=== PATIENT | female | born 1960 | race American Indian/Alaskan Native ===

== ENCOUNTER 2016-05-03 22:49 | Emergency (ER) | payer OTHER ==
[2016-05-04 00:01] LABS: Basophils % (Auto) 0.7 % (0.0-1.8); Eosinophils % (Auto) 2.2 % (0.0-4.3); Hematocrit 37.8 % (30.3-42.9); Hemoglobin 12.4 gm/dl (10.1-14.3); Mean Corpuscular HGB Conc 33 % (30-34); Mean Corpuscular Hemoglobin 29 pg (28-32); Mean Corpuscular Volume 87 fl (79-97); Platelet Count 248 K/mm3 (140-440); Red Blood Count 4.34 M/mm3 (3.65-5.03); Red Cell Distribution Width 13.9 % (13.2-15.2)
[2016-05-04 00:08] LABS: Anion Gap 20 mmol/L; BUN/Creatinine Ratio 22.85; Blood Urea Nitrogen 16 mg/dL (7-17); Calcium 9.3 mg/dL (8.4-10.2); Carbon Dioxide 27 mmol/L (22-30); Chloride 98.7 mmol/L (98-107); Glucose 144 mg/dL (65-100); Potassium 4.2 mmol/L (3.6-5.0); Sodium 141 mmol/L (137-145)
[2016-05-04 11:45] VITALS: BP 144/56
[2016-05-04] MEDS ORDERED: NEURONTIN PO ONE (11:59)
--- NOTE | 2016-05-04 12:07 | Emergency Department Report ---
HPI - General Chief Complaint: Dizziness Time Seen by Provider: 05/04/16 10:50 - HPI HPI: The patient is a 56-year-old female who presents for evaluation of right arm pain and chest pain. The patient reports 3 days of proximal constant right arm pain, burning in quality, 8/10 in severity, exacerbated with movement of the right arm, and radiating into the right chest. The patient trauma to the right arm or chest, fever, cough, dyspnea, COPD, hemoptysis, unilateral leg swelling, oral contraceptive use, recent immobilization, recent cancer. ED Past Medical Hx - Past Medical History Previous Medical History?: Yes Hx Hypertension: No Hx CVA: Yes Hx Heart Attack/AMI: No Hx Congestive Heart Failure: No Hx Diabetes: Yes Hx Deep Vein Thrombosis: Yes Hx Seizures: No Hx Asthma: No Hx COPD: No Hx Dementia: No Additional medical history: high chol - Surgical History Past Surgical History?: Yes Hx Coronary Stent: No Hx Pacemaker: No Hx Internal Defibrillator: No Additional Surgical History: Teratoma removal, thyroid surgery, hernia repair - Social History Smoking Status: Never Smoker Substance Use Type: Prescribed - Medications Home Medications: Home Medications Medication Instructions Recorded Confirmed Last Taken Type Aspirin [Baby Aspirin] 81 mg PO QDAY 01/04/13 04/12/15 11/25/13 History Lovastatin [Altoprev] 20 mg PO QPM 01/04/13 04/12/15 12/10/13 History metFORMIN [Glucophage] 500 mg PO BID 01/04/13 04/12/15 12/12/13 History glipiZIDE [Glucotrol] 5 mg PO BID 12/12/13 04/12/15 12/11/13 History Acetaminophen/Codeine [Tylenol #3] 1 tab PO Q6H PRN #20 tab 01/09/16 Unknown Rx Gabapentin [Neurontin] 300 mg PO BID #30 cap 05/04/16 Unknown Rx ED Review of Systems ROS: Stated complaint: ARM TINGLING,CP Other details as noted in HPI Constitutional: denies: fever ENT: denies: throat or neck pain Respiratory: denies: cough, shortness of breath Cardiovascular: reports chest pain Endocrine: denies unexplained weight loss or gain Gastrointestinal: denies: abdominal pain, nausea Genitourinary: denies: dysuria Musculoskeletal: reports arm pain denies: leg swelling Skin: denies: rash Neurological: denies: headache Hematological/Lymphatic: denies: easy bleeding or easy bruising Psych: denies sadness or hopelessness Physical Exam - Physical Exam Vital Signs: Vital Signs 05/03/16 05/03/16 05/04/16 23:02 23:04 11:13 Temperature 98.1 F 98.1 F Pulse Rate 80 80 Respiratory 18 18 Rate Blood Pressure 137/69 Blood Pressure 137/69 137/69 [Right] O2 Sat by Pulse 100 100 100 Oximetry 05/04/16 05/04/16 05/04/16 11:20 11:30 11:45 Temperature 98.6 F Pulse Rate 79 Respiratory Rate Blood Pressure 144/56 144/56 Blood Pressure [Right] O2 Sat by Pulse 99 99 Oximetry 05/04/16 11:49 Temperature Pulse Rate Respiratory 16 Rate Blood Pressure Blood Pressure [Right] O2 Sat by Pulse Oximetry Physical Exam: General: well-nourished, well-developed, no acute distress Head: Normocephalic, atraumatic Eyes: normal sclera ENT: Mucous membranes are pink and moist Neck: trachea midline, neck supple, No midline cervical spinous tenderness to palpation present, no spinous step-off or obvious deformity Respiratory: Breath sounds equal bilaterally, no wheezing, rales, or rhonchi Cardio: S1 and S2 present, no murmurs, rubs, gallops, capillary refill is brisk Abdomen: Normoactive bowel sounds, soft abdomen, no rigidity, no guarding or rebound tenderness Musc: Inspection, of the right arm is unremarkable, no redness, swelling, warmth , fluctuance, or crepitus, there is proximal posterior lateral right arm tenderness to palpation present, normal passive and active range of motion intact to the right shoulder and elbow joint, no sensation or motor deficit in the right arm or distally, distal pulses intact, No pitting edema Skin: No rash Neuro: no facial drooping, normal speech Psych: Normal affect ED Course Vital Signs 05/03/16 05/03/16 05/04/16 23:02 23:04 11:13 Temperature 98.1 F 98.1 F Pulse Rate 80 80 Respiratory 18 18 Rate Blood Pressure 137/69 Blood Pressure 137/69 137/69 [Right] O2 Sat by Pulse 100 100 100 Oximetry 05/04/16 05/04/16 05/04/16 11:20 11:30 11:45 Temperature 98.6 F Pulse Rate 79 Respiratory Rate Blood Pressure 144/56 144/56 Blood Pressure [Right] O2 Sat by Pulse 99 99 Oximetry 05/04/16 11:49 Temperature Pulse Rate Respiratory 16 Rate Blood Pressure Blood Pressure [Right] O2 Sat by Pulse Oximetry ED Medical Decision Making - Lab Data Result diagrams: 05/03/16 23:37 05/03/16 23:37 - Medical Decision Making The patient was seen and examined by myself. The patient is placed on a lunchroom monitor and continuous pulse ox. On initial evaluation, the patient was found to be in no distress. EKG was negative for findings suggestive of acute cardiac infarct. Labs and imaging are obtained. The patient is given a tablet of gabapentin for her pain. Lab results were non-concerning including levels of troponin, WBC, hemoglobin, hematocrit, electrolytes, renal function. The patient was reevaluated and reported that their symptoms were markedly improved. As the patient has a KELVIN risk score less than 2, and a well's score less than 2, the patient is at low risk of ACS or pulmonary emboli etiology of their symptoms. The patient is stable for discharge with outpatient follow-up. The patient is given follow-up and return instructions. The patient expressed understanding and agreed with the plan. The patient is discharged in stable condition. Critical care attestation.: If time is entered above; I have spent that time in minutes in the direct care of this critically ill patient, excluding procedure time. ED Disposition Clinical Impression: Pain in right upper arm, Acute chest pain Disposition: DISCHARGED TO HOME OR SELFCARE Is pt being admited?: No Does the pt Need Aspirin: No Condition: Stable Instructions: Chest Pain (ED), Peripheral Neuropathy (ED), Musculoskeletal Pain (ED) Prescriptions: Gabapentin [Neurontin] 300 mg PO BID #30 cap Referrals: PRIMARY CARE, [Primary Care Provider] - 3-5 Days Time of Disposition: 12:11
== END 2016-05-04 12:32 | disposition home or self-care (01) ==
LOC: ED 22:49
DX: M79.601 Pain in right arm (principal); R07.9 Chest pain, unspecified; E11.9 Type 2 diabetes mellitus without complications; E78.00 Pure hypercholesterolemia, unspecified
CPT/HCPCS: 36415; 80048; 84484; 85025; 93005; 93010; 99284

== ENCOUNTER 2016-08-06 07:18 | Emergency (ER) | payer OTHER ==
--- NOTE | 2016-08-06 10:39 | Emergency Department Report ---
ED Extremity Problem HPI - General Chief complaint: Extremity Injury, Lower Stated complaint: LEFT LEG PAIN/NOSE BLEED Time Seen by Provider: 08/06/16 07:57 Source: patient Mode of arrival: Ambulatory Limitations: No Limitations - History of Present Illness Initial comments: Reports history of DVT currently not on any anti-coagulation MD Complaint: extremity pain -: Gradual, week(s) Location: left, lower extremity History of Same: Yes -: No myalgia, No arthralgia, No fever, No associated dyspnea, No associated chest pain Radiation: none Severity scale (0 -10): 2 Quality: aching Consistency: intermittent Improves with: nothing Worsens with: nothing Associated Symptoms: denies: chest pain, shortness of breath, fever, myalgias, arthralgias, rash - Related Data Home Medications Medication Instructions Recorded Confirmed Last Taken Aspirin [Baby Aspirin] 81 mg PO QDAY 01/04/13 05/04/16 11/25/13 Lovastatin [Altoprev] 20 mg PO QPM 01/04/13 05/04/16 12/10/13 metFORMIN [Glucophage] 500 mg PO BID 01/04/13 05/04/16 12/12/13 glipiZIDE [Glucotrol] 5 mg PO BID 12/12/13 05/04/16 12/11/13 Previous Rx's Medication Instructions Recorded Last Taken Type Acetaminophen/Codeine [Tylenol #3] 1 tab PO Q6H PRN #20 tab 01/09/16 Unknown Rx Gabapentin [Neurontin] 300 mg PO BID #30 cap 05/04/16 Unknown Rx methOCARBAMOL [Robaxin TAB] 500 mg PO BID #12 tab 08/06/16 Unknown Rx Allergies Allergy/AdvReac Type Severity Reaction Status Date / Time No Known Allergies Allergy Unverified 01/04/13 18:05 ED Review of Systems ROS: Stated complaint: LEFT LEG PAIN/NOSE BLEED Other details as noted in HPI Other: GENERAL: No weight change, fatigue, weakness, fever, chills, or night sweats SKIN: No changes in skin or hair, no itching, no rashes, no jaundice HEAD: No trauma, headache, or visual changes EYES: No blurriness, tearing, itching, acute visual loss, conjunctival discoloration, or scleral icterus EARS: No hearing loss, tinnitus, vertigo, or earache NOSE: epistaxis MOUTH: No bleeding gums, hoarseness, sore throat, or swelling CARDIAC: No new murmur, chest pain, palpitations, dyspnea on exertion, orthopnea , PND, or edema RESPIRATORY: No shortness of breath, wheeze, cough, sputum production, hemoptysis, pneumonia, asthma, bronchitis, or emphysema GI: No change in appetite, nausea, vomiting, dysphagia, change in bowel frequency, diarrhea, constipation, bleeding, hematemesis, melena, hematochezia, or abdominal pain URINARY: No frequency, urgency, polyuria, dysuria, hematuria, or incontinence MUSCULOSKELETAL: Left leg pain NEUROLOGIC: No loss of sensation, numbness, tingling, tremors, weakness, paralysis, seizures HEMATOLOGIC: No anemia, easy bruising, bleeding, petechiae, or purpura ENDOCRINE: No hot or cold intolerance, sweating, polyuria, polydipsia or, polyphagia no thyroid problems PSYCHIATRIC: No change in mood, no anxiety, no depression ED Past Medical Hx - Past Medical History Hx Hypertension: No Hx CVA: Yes Hx Heart Attack/AMI: No Hx Congestive Heart Failure: No Hx Diabetes: Yes Hx Deep Vein Thrombosis: Yes Hx Seizures: No Hx Asthma: No Hx COPD: No Hx Dementia: No Additional medical history: high chol - Surgical History Past Surgical History?: Yes Hx Coronary Stent: No Hx Pacemaker: No Hx Internal Defibrillator: No Additional Surgical History: Teratoma removal, thyroid surgery, hernia repair - Social History Smoking Status: Never Smoker Substance Use Type: None - Medications Home Medications: Home Medications Medication Instructions Recorded Confirmed Last Taken Type Aspirin [Baby Aspirin] 81 mg PO QDAY 01/04/13 05/04/16 11/25/13 History Lovastatin [Altoprev] 20 mg PO QPM 01/04/13 05/04/16 12/10/13 History metFORMIN [Glucophage] 500 mg PO BID 01/04/13 05/04/16 12/12/13 History glipiZIDE [Glucotrol] 5 mg PO BID 12/12/13 05/04/16 12/11/13 History Acetaminophen/Codeine [Tylenol #3] 1 tab PO Q6H PRN #20 tab 01/09/16 05/04/16 Unknown Rx Gabapentin [Neurontin] 300 mg PO BID #30 cap 05/04/16 Unknown Rx methOCARBAMOL [Robaxin TAB] 500 mg PO BID #12 tab 08/06/16 Unknown Rx ED Physical Exam - General Limitations: No Limitations - Other Other exam information: GENERAL: Patient in no acute distress HEAD: Normocephalic, atraumatic EYES: PERRLA, EOM intact, no scleral icterus, no conjunctival hemorrhage, visual silveira and acuity wnl, NOSE: No tenderness, discharge, sinus tenderness MOUTH: No erythema, bleeding, exudate HEART: Regular rate and rhythm, no murmur, S1-S2 are auscultated, pulses are symmetric LUNGS: No wheezing, rales, rhonchi, bilateral breath sounds ABDOMEN: Normal bowel sounds, no tenderness, no rebound, no guarding, no masses , no CVA tenderness MUSCULOSKELETAL: Normal joint range of motion, no redness, no swelling, no tenderness NEUROLOGIC: GCS 15, Alert and Oriented x3, Cranial nerves intact, normal sensation, normal strength, normal gait, no cerebellar deficit PSYCHIATRIC: No homicidal or suicidal ideation, no anxiety, no depression, no hallucinations SKIN: Skin is warm and dry, no wounds, no rashes ED Course Vital Signs 08/06/16 08/06/16 08/06/16 07:24 07:48 11:17 Temperature 98 F 98.6 F Pulse Rate 76 86 Respiratory 16 16 18 Rate Blood Pressure 118/79 Blood Pressure 142/80 [Right] O2 Sat by Pulse 100 99 96 Oximetry ED Medical Decision Making - Radiology Data Radiology results: report reviewed - Medical Decision Making Patient comfortable. Updated with results. Plan discharge with outpatient follow-up. Patient agrees with plan and will return if symptoms worsen. Critical care attestation.: If time is entered above; I have spent that time in minutes in the direct care of this critically ill patient, excluding procedure time. ED Disposition Clinical Impression: Muscle strain Disposition: DC-01 TO HOME OR SELFCARE Is pt being admited?: No Condition: Stable Instructions: Muscle Strain (ED) Prescriptions: methOCARBAMOL [Robaxin TAB] 500 mg PO BID #12 tab Referrals: PRIMARY CARE, [Primary Care Provider] - 3-5 Days THERESA OSORIO MD [Staff Physician] - 3-5 Days Time of Disposition: 10:37
[2016-08-06 11:18] VITALS: BP 142/80
--- NOTE | 2016-08-07 09:22 | Vascular Lab Report ---
Left Lower Extremity Venous Duplex Study: Reason for Exam: Pain of the left lower extremity. Comments on the Right: A limited duplex study was done of the proximal veins of the right lower extremity. All veins visualized are freely compressible without evidence of internal echogenicity. Flow is spontaneous and phasic throughout. No evidence of acute or chronic thrombus is seen in any of the vessels visualized. Comments on the Left: All veins visualized are freely compressible without evidence of internal echogenicity. Flow is spontaneous and phasic throughout. No evidence of acute or chronic thrombus is seen in any of the vessels visualized. Soft tissue radiolucent density behind the left knee is consistent with August's cyst Impression: No evidence of acute or chronic deep venous thrombosis in the left lower extremity.
== END 2016-08-06 11:16 | disposition home or self-care (01) ==
LOC: ED 07:18
DX: S86.812A Strain of other muscle(s) and tendon(s) at lower leg level, left leg, initial encounter (principal); E11.9 Type 2 diabetes mellitus without complications; I82.4Z2 Acute embolism and thrombosis of unspecified deep veins of left distal lower extremity; E78.00 Pure hypercholesterolemia, unspecified; Z79.82 Long term (current) use of aspirin; X58.XXXA Exposure to other specified factors, initial encounter; Y93.89 Activity, other specified; Y92.89 Other specified places as the place of occurrence of the external cause; Y99.8 Other external cause status; Z86.73 Personal history of transient ischemic attack (TIA), and cerebral infarction without residual deficits

== ENCOUNTER 2017-04-08 22:04 | Emergency (ER) | payer OTHER ==
[2017-04-09] LABS: Basophils % (Auto) 0.2 % (0.0-1.8); Eosinophils # (Auto) 0.2 K/mm3 (0.0-0.4); Eosinophils % (Auto) 1.5 % (0.0-4.3); Hematocrit 39.7 % (30.3-42.9); Lymphocytes # (Auto) 2.4 K/mm3 (1.2-5.4); Lymphocytes % (Auto) 23.7 % (13.4-35.0); Mean Corpuscular HGB Conc 33 % (30-34); Mean Corpuscular Hemoglobin 29 pg (28-32); Mean Corpuscular Volume 88 fl (79-97); Monocytes # (Auto) 0.5 K/mm3 (0.0-0.8); Monocytes % (Auto) 4.4 % (0.0-7.3); Platelet Count 269 K/mm3 (140-440); Red Cell Distribution Width 14.1 % (13.2-15.2)
[2017-04-09 00:19] LABS: BUN/Creatinine Ratio 25; Blood Urea Nitrogen 15 mg/dL (7-17); Hemolysis Index 7
[2017-04-09] MEDS ORDERED: ASPIRIN ONE (12:26)
[2017-04-09] MEDS: ASPIRIN PO ONE ×2 (12:30→13:56)
--- NOTE | 2017-04-09 15:30 | Emergency Department Report ---
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 Last night after she ate some nachos and laid back she has some burning in her chest. She presented to triage complaining of burning chest pain that is now resolved with Pepto-Bismol No. 1. #2 persistent leg swelling on the right leg after she felt a pop yesterday while at jury duty. She denies any shortness of breath she denies any tearing pain she denies any radiation of the pain she denies any exertional symptoms.no Chest pain is resolved from yesterday after Pepto-Bismol after eating not shows while laying flat.no n/v/d no cough or fever.vss at triage -: Gradual, During the night, unknown Location: lower extremity Radiation: non-radiation Severity scale (0 -10): 0 Quality: burning Improves with: other (Pepto-Bismol) Worsens with: eating - Related Data Home Medications Medication Instructions Recorded Confirmed Last Taken Aspirin [Baby Aspirin] 81 mg PO QDAY 01/04/13 05/04/16 11/25/13 Lovastatin [Altoprev] 20 mg PO QPM 01/04/13 05/04/16 12/10/13 metFORMIN [Glucophage] 500 mg PO BID 01/04/13 05/04/16 12/12/13 glipiZIDE [Glucotrol] 5 mg PO BID 12/12/13 05/04/16 12/11/13 Previous Rx's Medication Instructions Recorded Last Taken Type Acetaminophen/Codeine [Tylenol #3] 1 tab PO Q6H PRN #20 tab 01/09/16 Unknown Rx Gabapentin [Neurontin] 300 mg PO BID #30 cap 05/04/16 Unknown Rx methOCARBAMOL [Robaxin TAB] 500 mg PO BID #12 tab 08/06/16 Unknown Rx Famotidine [Pepcid] 20 mg PO BID #14 tablet 04/09/17 Unknown Rx Allergies Allergy/AdvReac Type Severity Reaction Status Date / Time No Known Allergies Allergy Verified 04/08/17 23:16 ED Review of Systems ROS: Stated complaint: RIGHT LEG PAIN/CHEST PAIN Other details as noted in HPI Comment: All other systems reviewed and negative Constitutional: no symptoms reported. denies: diaphoresis, fever, malaise, weakness ENT: denies: ear pain, throat pain, dental pain, hearing loss, epistaxis Respiratory: denies: cough, orthopnea, shortness of breath, SOB with exertion, SOB at rest, stridor, wheezing Cardiovascular: as per HPI. denies: palpitations, dyspnea on exertion, orthopnea, edema, syncope, paroxysmal nocturnal dyspnea Endocrine: no symptoms reported Gastrointestinal: other (GERD). denies: abdominal pain, nausea, vomiting, diarrhea, constipation, hematemesis, melena, hematochezia Musculoskeletal: as per HPI, myalgia. denies: arthralgia Skin: denies: rash, lesions Neurological: denies: headache, weakness, numbness, paresthesias, confusion, abnormal gait, vertigo Psychiatric: anxiety. denies: depression, auditory hallucinations, visual hallucinations, homicidal thoughts, suicidal thoughts ED Past Medical Hx - Past Medical History Previous Medical History?: Yes Hx Hypertension: No Hx CVA: Yes Hx Heart Attack/AMI: No Hx Congestive Heart Failure: No Hx Diabetes: Yes Hx Deep Vein Thrombosis: Yes Hx Seizures: No Hx Asthma: No Hx COPD: No Hx Dementia: No Additional medical history: high chol - Surgical History Hx Coronary Stent: No Hx Pacemaker: No Hx Internal Defibrillator: No Additional Surgical History: Teratoma removal, thyroid surgery, hernia repair - Social History Smoking Status: Never Smoker Substance Use Type: None - Medications Home Medications: Home Medications Medication Instructions Recorded Confirmed Last Taken Type Aspirin [Baby Aspirin] 81 mg PO QDAY 01/04/13 05/04/16 11/25/13 History Lovastatin [Altoprev] 20 mg PO QPM 01/04/13 05/04/16 12/10/13 History metFORMIN [Glucophage] 500 mg PO BID 01/04/13 05/04/16 12/12/13 History glipiZIDE [Glucotrol] 5 mg PO BID 12/12/13 05/04/16 12/11/13 History Acetaminophen/Codeine [Tylenol #3] 1 tab PO Q6H PRN #20 tab 01/09/16 05/04/16 Unknown Rx Gabapentin [Neurontin] 300 mg PO BID #30 cap 05/04/16 Unknown Rx methOCARBAMOL [Robaxin TAB] 500 mg PO BID #12 tab 08/06/16 Unknown Rx Famotidine [Pepcid] 20 mg PO BID #14 tablet 04/09/17 Unknown Rx ED Physical Exam - General Limitations: No Limitations General appearance: alert, in no apparent distress, anxious - Head Head exam: Present: atraumatic, normocephalic - Eye Eye exam: Present: normal appearance, PERRL, EOMI - ENT ENT exam: Present: normal exam, normal orophraynx - Neck Neck exam: Present: normal inspection. Absent: tenderness, meningismus - Respiratory Respiratory exam: Present: normal lung sounds bilaterally. Absent: respiratory distress, wheezes, rales, rhonchi, stridor, chest wall tenderness, accessory muscle use, decreased breath sounds, prolonged expiratory - Cardiovascular Cardiovascular Exam: Present: regular rate, normal rhythm, normal heart sounds. Absent: systolic murmur, diastolic murmur, rubs, gallop - GI/Abdominal GI/Abdominal exam: Present: soft. Absent: distended, tenderness, guarding, rebound, rigid, mass, bruit, pulsatile mass - Extremities Exam Extremities exam: Present: normal capillary refill, pedal edema, calf tenderness. Absent: joint swelling - Back Exam Back exam: Present: normal inspection, full ROM. Absent: tenderness, CVA tenderness (R), CVA tenderness (L), muscle spasm, paraspinal tenderness, vertebral tenderness - Neurological Exam Neurological exam: Present: alert, oriented X3, CN II-XII intact. Absent: motor sensory deficit - Psychiatric Psychiatric exam: Present: normal affect, normal mood - Skin Skin exam: Present: warm. Absent: diaphoretic, erythema, urticaria, vesicles, petechiae, pallor, abrasion, ecchymosis ED Course Vital Signs 04/08/17 04/09/17 04/09/17 22:20 12:23 14:14 Temperature 98.2 F 97.6 F 98.0 F Pulse Rate 101 H 68 68 Respiratory 17 18 14 Rate Blood Pressure 146/52 Blood Pressure 135/64 113/54 [Left] O2 Sat by Pulse 99 100 100 Oximetry 04/09/17 04/09/17 14:36 17:02 Temperature 98.2 F Pulse Rate 67 Respiratory 14 14 Rate Blood Pressure Blood Pressure 108/50 [Left] O2 Sat by Pulse 100 Oximetry ED Medical Decision Making - Lab Data Result diagrams: 04/08/17 23:37 04/08/17 23:37 - EKG Data -: EKG Interpreted by Me EKG shows normal: sinus rhythm - EKG Data When compared to previous EKG there are: no significant change, other (acute ischemic change) - Radiology Data Radiology results: report reviewed - Medical Decision Making Patient with 2 complaints chest pain and right lower extremity edema and pop. Chest x-ray shows within normal limits. Ultrasound of the right lower extremity was read as negative on the pre-limb by the tech. The final result is not out. Differential does include ruptured August's cyst versus by mouth edema. Differential and chest pain is atypical. She has no tearing pain she has no shortness of breath she has no signs or symptoms of would suggest dissection or ACS at this time. Symptoms resolved with antacids. She says it did get worse after lying flat and she thought it was related to eating nodules. Troponin is negative 3. EKG is non-diagnostic at this time. Atypical chest pain differential does include GERD as well as nonspecific chest pain. As previously noted is no evidence of any emergent chest pain syndrome that would warrant admission or further evaluation at this time. ACS is unlikely given negative troponin 3 and unremarkable EKG history is atypical for ACS. Chest pain is resolved at this time. She'll be started on H2 blockers. The leg edema does not appear to be a DVT at this time. Differential is ruptured August's cyst and edema she will be instructed to elevate her legs and see orthopedics S or other emergent process is appreciated at this time she is stable for outpatient follow-up she is currently in no acute distress with stable vital signs Critical care attestation.: If time is entered above; I have spent that time in minutes in the direct care of this critically ill patient, excluding procedure time. ED Disposition Clinical Impression: Chest pain, atypical, GERD (gastroesophageal reflux disease), Leg edema Disposition: DC-01 TO HOME OR SELFCARE Is pt being admited?: No Condition: Stable Instructions: Chest Pain (ED), Leg Edema (ED), August's Cyst (ED) Additional Instructions: See her doctor in 2 days return if worse or 911 if or worsening symptoms Prescriptions: Famotidine [Pepcid] 20 mg PO BID #14 tablet Referrals: MOON GALEANO MD [Primary Care Provider] - 3-5 Days Time of Disposition: 18:44
--- NOTE | 2017-04-09 15:54 | XRay Report ---
ROUTINE CHEST, TWO VIEWS: HISTORY: Wheezing. The trachea, heart, mediastinal contour, lung silveira and bony thorax are unremarkable. IMPRESSION: Unremarkable chest x-ray.
[2017-04-09 19:04] VITALS: BP 143/70
== END 2017-04-09 19:06 | disposition home or self-care (01) ==
LOC: ED 22:04
DX: K21.9 Gastro-esophageal reflux disease without esophagitis (principal); R07.89 Other chest pain; R60.0 Localized edema; Z86.73 Personal history of transient ischemic attack (TIA), and cerebral infarction without residual deficits; E11.9 Type 2 diabetes mellitus without complications; I82.409 Acute embolism and thrombosis of unspecified deep veins of unspecified lower extremity; E78.00 Pure hypercholesterolemia, unspecified; Z79.82 Long term (current) use of aspirin
CPT/HCPCS: 36415; 71046; 80048; 82962; 84484; 85025; 93005; 93010

== ENCOUNTER 2017-08-21 16:16 | Outpatient (CLI) | payer OTHER ==
--- NOTE | 2017-08-22 07:37 | Magnetic Resonance Report ---
MR LOWER EXTREMITY JOINT RIGHT WITHOUT CONTRAST History: Pain in right knee. Technique: Multisequence, multiplanar MRI without contrast was performed through the right knee. Comparison: No relevant comparison at this facility. FINDINGS: A moderate joint effusion is identified which extends to the suprapatellar bursa. There is a large popliteal cyst measuring up to 7.7 x 3.3 x 2.5 cm. The bone marrow signal is within normal limits. No evidence for fracture, osteochondral defect or bone lesion. There appears to be complete or near-complete loss of cartilage in the lateral compartment as well as the lateral facet of the retropatellar cartilage. Moderate diffuse cartilage thinning is noted in the medial compartment. The ACL, PCL, MCL, LCL complex and extensor complex are intact. There is moderate myxoid degeneration of both menisci but no discrete meniscal tear is detected. IMPRESSION: Moderate to severe osteoarthritis as described. Moderate joint effusion. Large popliteal cyst.
== END 2017-08-21 16:17 | disposition home or self-care (01) ==
LOC: MRI 16:16
PROVIDERS: ATTEND Orthopaedic Surgery
DX: M17.11 Unilateral primary osteoarthritis, right knee (principal); M71.21 Synovial cyst of popliteal space [Baker], right knee; E66.9 Obesity, unspecified; E78.5 Hyperlipidemia, unspecified; Z90.710 Acquired absence of both cervix and uterus
CPT/HCPCS: 73721

== ENCOUNTER 2017-10-02 10:45 | Outpatient (CLI) | payer OTHER ==
--- NOTE | 2017-10-02 11:36 | XRay Report ---
RIGHT KNEE, 2 views: History: Right knee unilateral primary osteoarthritis Normal bone mineralization. Moderate osteoarthritic changes are identified in all 3 compartments. The patellofemoral space appears most affected. There is no evidence for fracture, bone lesion or large joint effusion. The soft tissues are unremarkable. IMPRESSION: Moderate tricompartmental osteoarthritis.
== END 2017-10-02 10:46 | disposition home or self-care (01) ==
LOC: XRAY 10:45
PROVIDERS: ATTEND Orthopaedic Surgery
DX: M17.11 Unilateral primary osteoarthritis, right knee (principal); E78.5 Hyperlipidemia, unspecified; E66.9 Obesity, unspecified; M19.90 Unspecified osteoarthritis, unspecified site; E11.9 Type 2 diabetes mellitus without complications; K21.9 Gastro-esophageal reflux disease without esophagitis; E78.00 Pure hypercholesterolemia, unspecified; I63.9 Cerebral infarction, unspecified; Z90.710 Acquired absence of both cervix and uterus; Z90.89 Acquired absence of other organs

== ENCOUNTER 2017-11-11 19:40 | Emergency (ER) | payer OTHER ==
[2017-11-11 21:35] LABS: Bilirubin,Urine NEG (Negative); Blood,Urine NEG (Negative); Color,Urine Colorless (Yellow); Protein,Urine <15 mg/dL mg/dL (Negative); RBC,Urine < 1.0 /HPF (0.0-6.0); Urobilinogen,Urine < 2.0 mg/dL (<2.0)
--- NOTE | 2017-11-11 23:41 | Emergency Department Report ---
ED Female HPI - General Chief complaint: Urogenital-Female Stated complaint: PAIN WHEN URINATING Time Seen by Provider: 11/11/17 23:35 Source: patient Mode of arrival: Wheelchair Limitations: No Limitations - History of Present Illness Initial comments: Patient 57-year-old female who presents for yeast infection stay status post right knee replacement on 10/03/2017 developed a UTI and patient treated for same diagnosis [place] on discharge treated with Diflucan one tablet 1 states systems return erythema itching urinary frequency urgency staining foul smell with urination there is no hematuria patient does note back spasms history of renal stones and fever no chills no nausea vomiting MD Complaint: dysuria, other (rash ) Onset/Timin -: week(s) Radiation: non-radiating Severity: mild Severity scale (0 -10): 3 Quality: burning, other (itching ) Consistency: constant Improves with: none Worsens with: urination, bathing Are you Now?: No Associated Symptoms: rash - Related Data Sexually active: No Home Medications Medication Instructions Recorded Confirmed Last Taken Lovastatin [Altoprev] 20 mg PO QPM 01/04/13 09/20/17 10/02/17 metFORMIN [Glucophage] 1,000 mg PO BID 01/04/13 09/20/17 10/02/17 glipiZIDE [Glucotrol] 10 mg PO BID 12/12/13 09/20/17 10/02/17 Brimonidine Tartrate [Brimonidine 1 drop OU BID 09/20/17 09/20/17 10/02/17 Tartrate 0.2%] Famotidine [Pepcid] 20 mg PO PRN PRN 09/20/17 09/20/17 10/02/17 Latanoprost 0.005% [Xalatan 0.005%] 1 drop OP QPM 09/20/17 09/20/17 10/02/17 Previous Rx's Medication Instructions Recorded Last Taken Type Apixaban [Eliquis] 2.5 mg PO BID #42 tablet 10/06/17 Unknown Rx Oxycodone HCl [oxyCODONE TAB] 10 mg PO Q6H PRN #30 tablet 10/06/17 Unknown Rx Fluconazole [Diflucan] 150 mg PO Q72HR #2 tablet 11/11/17 Unknown Rx Nitrofurantoin [place]/M-Cryst 100 mg PO Q12HR #14 capsule 11/11/17 Unknown Rx [Macrobid CAP] Allergies Allergy/AdvReac Type Severity Reaction Status Date / Time No Known Allergies Allergy Verified 04/08/17 23:16 ED Review of Systems ROS: Stated complaint: PAIN WHEN URINATING Other details as noted in HPI Constitutional: denies: chills, fever Eyes: denies: eye pain, eye discharge, vision change ENT: denies: ear pain, throat pain Respiratory: denies: cough, shortness of breath, wheezing Cardiovascular: denies: chest pain, palpitations Endocrine: no symptoms reported Gastrointestinal: denies: abdominal pain, nausea, diarrhea Genitourinary: urgency, dysuria, frequency. denies: hematuria, discharge, abnormal menses, dyspareunia Musculoskeletal: back pain. denies: joint swelling, arthralgia Skin: denies: rash, lesions Neurological: denies: headache, weakness, paresthesias Psychiatric: denies: anxiety, depression Hematological/Lymphatic: denies: easy bleeding, easy bruising ED Past Medical Hx - Past Medical History Hx Hypertension: No Hx CVA: Yes Hx Heart Attack/AMI: No Hx Congestive Heart Failure: No Hx Diabetes: Yes Hx Deep Vein Thrombosis: Yes Hx GERD: Yes Hx Headaches / Migraines: Yes (MIGRAINES) Hx Seizures: No Hx Asthma: No Hx COPD: No Hx Dementia: No Hx HIV: No Additional medical history: high chol - Surgical History Hx Coronary Stent: No Hx Pacemaker: No Hx Internal Defibrillator: No Additional Surgical History: Teratoma removal, thyroid surgery, hernia repair, right total knee - Social History Smoking Status: Never Smoker Substance Use Type: None - Medications Home Medications: Home Medications Medication Instructions Recorded Confirmed Last Taken Type Lovastatin [Altoprev] 20 mg PO QPM 01/04/13 09/20/17 10/02/17 History metFORMIN [Glucophage] 1,000 mg PO BID 01/04/13 09/20/17 10/02/17 History glipiZIDE [Glucotrol] 10 mg PO BID 12/12/13 09/20/17 10/02/17 History Brimonidine Tartrate [Brimonidine 1 drop OU BID 09/20/17 09/20/17 10/02/17 History Tartrate 0.2%] Famotidine [Pepcid] 20 mg PO PRN PRN 09/20/17 09/20/17 10/02/17 History Latanoprost 0.005% [Xalatan 0.005%] 1 drop OP QPM 09/20/17 09/20/17 10/02/17 History Apixaban [Eliquis] 2.5 mg PO BID #42 tablet 10/06/17 Unknown Rx Oxycodone HCl [oxyCODONE TAB] 10 mg PO Q6H PRN #30 tablet 10/06/17 Unknown Rx Fluconazole [Diflucan] 150 mg PO Q72HR #2 tablet 11/11/17 Unknown Rx Nitrofurantoin [place]/M-Cryst 100 mg PO Q12HR #14 capsule 11/11/17 Unknown Rx [Macrobid CAP] ED Physical Exam - General Limitations: No Limitations General appearance: alert, in no apparent distress - Head Head exam: Present: atraumatic, normocephalic - Eye Eye exam: Present: normal appearance - ENT ENT exam: Present: mucous membranes moist - Neck Neck exam: Present: normal inspection - Respiratory Respiratory exam: Present: normal lung sounds bilaterally. Absent: respiratory distress - Cardiovascular Cardiovascular Exam: Present: regular rate, normal rhythm. Absent: systolic murmur, diastolic murmur, rubs, gallop - GI/Abdominal GI/Abdominal exam: Present: soft, normal bowel sounds. Absent: distended, tenderness, bruit, hernia - Rectal Rectal exam: Present: deferred - Extremities Exam Extremities exam: Present: normal inspection - Back Exam Back exam: Present: normal inspection. Absent: full ROM, tenderness, CVA tenderness (R), CVA tenderness (L), muscle spasm, paraspinal tenderness, vertebral tenderness ED Course Vital Signs 11/11/17 20:00 Temperature 98.7 F Pulse Rate 90 Respiratory 18 Rate Blood Pressure 122/67 O2 Sat by Pulse 98 Oximetry ED Medical Decision Making - Lab Data Laboratory Tests 11/11/17 20:47 Urine Color Colorless Urine Turbidity Clear Urine pH 6.0 Ur Specific [place] 1.003 Urine Protein <15 mg/dl Urine Glucose (UA) Neg Urine Ketones Neg Urine Blood Neg Urine Nitrite Neg Urine Bilirubin Neg Urine Urobilinogen < 2.0 Ur Leukocyte Esterase Neg Urine WBC (Auto) 1.0 Urine RBC (Auto) < 1.0 U Epithel Cells (Auto) 1.0 - Medical Decision Making UA normal plan treatment for dysuria candidal vaginitis Macrobid Diflucan patient will follow up with PCP in 2-[address] Amezcua patient verbalizes agreement and understanding and signed patient was DC'd home stable condition at this time Critical care attestation.: If time is entered above; I have spent that time in minutes in the direct care of this critically ill patient, excluding procedure time. ED Disposition Clinical Impression: Candidal vaginitis, Dysuria Disposition: DC-01 TO HOME OR SELFCARE Is pt being admited?: No Does the pt Need Aspirin: No Condition: Good Instructions: Vaginitis (ED) Prescriptions: Nitrofurantoin [place]/M-Cryst [Macrobid CAP] 100 mg PO Q12HR #14 capsule Fluconazole [Diflucan] 150 mg PO Q72HR #2 tablet Referrals: PRIMARY CARE, [Primary Care Provider] - 3-5 Days Forms: Work/School Release Form(ED) Time of Disposition: 23:52
[2017-11-11] MEDS ORDERED: MOTRIN PO ONE (23:53)
[2017-11-12 00:54] VITALS: BP 129/77
== END 2017-11-12 00:54 | disposition home or self-care (01) ==
LOC: ED 19:40
DX: B37.3 Candidiasis of vulva and vagina (principal); R30.0 Dysuria; E11.9 Type 2 diabetes mellitus without complications; K21.9 Gastro-esophageal reflux disease without esophagitis; G43.909 Migraine, unspecified, not intractable, without status migrainosus; Z86.73 Personal history of transient ischemic attack (TIA), and cerebral infarction without residual deficits; Z86.718 Personal history of other venous thrombosis and embolism
CPT/HCPCS: 81001; 82962; 99283

== ENCOUNTER 2021-01-11 08:41 | Emergency (ER) | payer OTHER ==
--- NOTE | 2021-01-11 11:17 | XRay Report ---
CHEST 2 VIEWS INDICATION / CLINICAL INFORMATION: Chest Pain. COMPARISON: 2 views of the chest from 04/09/2017 FINDINGS: SUPPORT DEVICES: None. HEART / MEDIASTINUM: No significant abnormality. LUNGS / PLEURA: No significant pulmonary abnormality. No significant pleural effusion. No pneumothora x. ADDITIONAL FINDINGS: No significant additional findings. IMPRESSION: 1. No acute abnormality of the chest. Signer Name: Mathew Day MD Signed: 01/11/2021 11:13 AM Workstation Name: [id number]
[2021-01-11 11:53] LABS: Alanine Aminotransferase 12 units/L (7-56); Albumin 4.5 g/dL (3.9-5); Blood Urea Nitrogen 15 mg/dL (7-17); Calcium 9.8 mg/dL (8.4-10.2); Hemolysis Index 3
[2021-01-11 11:57] LABS: BUN/Creatinine Ratio 30
--- NOTE | 2021-01-11 11:57 | Event Note ---
ED Screening Note Date of service: 01/11/21 Time: 10:20 ED Screening Note: Two 1-year-old -Indian female presents to the emergency room complaining of left arm pain that is now into her left chest started on Saturday progressively gotten worse. She is now having chest discomfort. She has a history of pulmonary embolisms DVTs. She states she has had multiple TIAs. She has been complaining of dizziness unsteady gait. This initial assessment/diagnostic orders/clinical plan/treatment(s) is/are subject to change based on patients health status, clinical progression and re- assessment by fellow clinical providers in the ED. Further treatment and workup at subsequent clinical providers discretion. Patient/guardian urged not to elope from the ED as their condition may be serious if not clinically assessed and managed. Initial orders include: Cardiac work-up has been ordered D-dimer.
[2021-01-11 12:05] LABS: Basophils % (Auto) 0.8 % (0.0-1.8); Eosinophils # (Auto) 0.1 K/mm3 (0.0-0.4); Eosinophils % (Auto) 1.9 % (0.0-4.3); Hematocrit 45.1 % (30.3-42.9); Hemoglobin 14.4 gm/dl (10.1-14.3); Lymphocytes # (Auto) 1.9 K/mm3 (1.2-5.4); Lymphocytes % (Auto) 32.6 % (13.4-35.0); Mean Corpuscular HGB Conc 32 % (30-34); Mean Corpuscular Volume 90 fl (79-97); Monocytes # (Auto) 0.3 K/mm3 (0.0-0.8); Monocytes % (Auto) 5.9 % (0.0-7.3); Platelet Count 252 K/mm3 (140-440); Red Blood Count 5.02 M/mm3 (3.65-5.03); Red Cell Distribution Width 14.8 % (13.2-15.2)
--- NOTE | 2021-01-11 12:23 | Emergency Department Report ---
ED Upper Extremity Inj HPI - General Chief Complaint: Extremity Injury, Upper Stated Complaint: L ARM PAIN Time Seen by Provider: 01/11/21 10:07 Source: patient Mode of arrival: Ambulatory Limitations: No Limitations - History of Present Illness Initial Comments: 60-year-old female, history of DVT, PE, TIA, presents to ED with complaint of left shoulder pain x1 week. Patient states pain is worse with movement of the left arm. States the pain feels like a soreness or aching. Patient also reports she has been having some intermittent lightheadedness, only when standing. Patient reports last night, she experienced numbness pain underneath her left breast. States it was sharp in nature. She denies any shortness of breath, leg pain or swelling, cough, fever. Patient denies any chest pain at this time. Patient states she is no longer on any blood thinners at this time. Complaint: Injury to:: left, shoulder -: week(s) (1) Improves With: immobilization Worsens With: movement of extremity Associated Symptoms: denies: weakness, numbness, neck pain - Related Data Home Medications Medication Instructions Recorded Confirmed Last Taken Lovastatin [Altoprev] 20 mg PO QPM 01/04/13 01/11/21 10/02/17 glipiZIDE [Glucotrol] 10 mg PO BID 12/12/13 01/11/21 10/02/17 Brimonidine Tartrate [Brimonidine 1 drop OU BID 09/20/17 01/11/21 10/02/17 Tartrate 0.2%] Latanoprost 0.005% [Xalatan 0.005%] 1 drop OP QPM 09/20/17 01/11/21 10/02/17 Previous Rx's Medication Instructions Recorded Last Taken Type Naproxen [Naprosyn] 500 mg PO BID #20 tablet 01/11/21 Unknown Rx traMADoL [Ultram] 50 mg PO Q6HR PRN #7 tablet 01/11/21 Unknown Rx Allergies Allergy/AdvReac Type Severity Reaction Status Date / Time No Known Allergies Allergy Verified 01/11/21 08:46 ED Review of Systems ROS: Stated complaint: L ARM PAIN Other details as noted in HPI Constitutional: denies: chills, fever Respiratory: denies: cough, shortness of breath Cardiovascular: chest pain Gastrointestinal: denies: nausea, vomiting Musculoskeletal: other (Denies leg pain or swelling) Neurological: other (Patient reports dizziness) ED Past Medical Hx - Past Medical History Hx Hypertension: No Hx CVA: Yes Hx Heart Attack/AMI: No Hx Congestive Heart Failure: No Hx Diabetes: Yes Hx Deep Vein Thrombosis: Yes Hx GERD: Yes Hx Headaches / Migraines: Yes (MIGRAINES) Hx Seizures: No Hx Asthma: No Hx COPD: No Hx Dementia: No Hx HIV: No Additional medical history: high chol - Surgical History Hx Coronary Stent: No Hx Pacemaker: No Hx Internal Defibrillator: No Additional Surgical History: Teratoma removal, thyroid surgery, hernia repair, right total knee - Social History Smoking Status: Never Smoker Substance Use Type: None - Medications Home Medications: Home Medications Medication Instructions Recorded Confirmed Last Taken Type Lovastatin [Altoprev] 20 mg PO QPM 01/04/13 01/11/21 10/02/17 History glipiZIDE [Glucotrol] 10 mg PO BID 12/12/13 01/11/21 10/02/17 History Brimonidine Tartrate [Brimonidine 1 drop OU BID 09/20/17 01/11/21 10/02/17 History Tartrate 0.2%] Latanoprost 0.005% [Xalatan 0.005%] 1 drop OP QPM 09/20/17 01/11/21 10/02/17 History Naproxen [Naprosyn] 500 mg PO BID #20 tablet 01/11/21 Unknown Rx traMADoL [Ultram] 50 mg PO Q6HR PRN #7 tablet 01/11/21 Unknown Rx ED Physical Exam - General Limitations: No Limitations General appearance: alert, in no apparent distress - Head Head exam: Present: atraumatic, normocephalic - Eye Eye exam: Present: normal appearance, EOMI - ENT ENT exam: Present: mucous membranes moist - Neck Neck exam: Present: normal inspection - Respiratory Respiratory exam: Present: normal lung sounds bilaterally. Absent: respiratory distress - Cardiovascular Cardiovascular Exam: Present: regular rate, normal rhythm - GI/Abdominal GI/Abdominal exam: Present: soft. Absent: distended, tenderness - Extremities Exam Extremities exam: Present: tenderness (To left shoulder with palpation and with range of motion) - Neurological Exam Neurological exam: Present: alert, oriented X3, CN II-XII intact. Absent: motor sensory deficit - Psychiatric Psychiatric exam: Present: normal affect, normal mood - Skin Skin exam: Present: warm, dry, intact, normal color ED Course Vital Signs 01/11/21 01/11/21 01/11/21 08:45 10:02 12:37 Temperature 98 F Pulse Rate 75 70 Pulse Rate [ 69 Lying] Pulse Rate [ 65 Sitting] Pulse Rate [ 80 Standing] Respiratory 18 18 Rate Blood Pressure Blood Pressure 160/71 150/76 [Left] Blood Pressure 135/62 [Lying] Blood Pressure 138/62 [Sitting] Blood Pressure 139/68 [Standing] O2 Sat by Pulse 99 97 Oximetry 01/11/21 13:32 Temperature 97.5 F L Pulse Rate 66 Pulse Rate [ Lying] Pulse Rate [ Sitting] Pulse Rate [ Standing] Respiratory 16 Rate Blood Pressure 152/59 Blood Pressure [Left] Blood Pressure [Lying] Blood Pressure [Sitting] Blood Pressure [Standing] O2 Sat by Pulse 100 Oximetry ED Medical Decision Making - Lab Data Result diagrams: 01/11/21 11:03 01/11/21 11:03 - EKG Data -: EKG Interpreted by Me EKG shows normal: sinus rhythm, axis, intervals, QRS complexes Rate: normal - EKG Data Interpretation: nonspecific ST-T wave dana - Radiology Data Radiology results: report reviewed, image reviewed - Medical Decision Making 60-year-old female presents to ED with left shoulder pain x1 week, one episode of chest pain last night. Patient denies any chest pain at this time. Shoulder pain seems to be musculoskeletal in nature, however due to history of PE, D- dimer was obtained and found to be elevated. CTA, however, negative for any acute findings. Remainder of labs were normal including troponin. EKG shows some nonspecific findings. Patient will be discharged at this time. Outpatient follow-up advised, return precautions given. - Differential Diagnosis Arthritis, ACS, PE Critical care attestation.: If time is entered above; I have spent that time in minutes in the direct care of this critically ill patient, excluding procedure time. ED Disposition Clinical Impression: Left shoulder pain, Chest pain Disposition: 01 HOME / SELF CARE / HOMELESS Is pt being admited?: No Condition: Stable Instructions: Shoulder Pain, Aint-wk-Qwaz, Nonspecific Chest Pain, Adult Prescriptions: Naproxen [Naprosyn] 500 mg PO BID #20 tablet traMADoL [Ultram] 50 mg PO Q6HR PRN #7 tablet PRN Reason: Pain Referrals: VAL NGUYEN MD [Primary Care Provider] - 3-5 Days Time of Disposition: 15:02
[2021-01-11 13:36] VITALS: BP 152/59
--- NOTE | 2021-01-11 14:47 | Cat Scan Report ---
CT BRAIN: 01/11/2021 INDICATION / CLINICAL INFORMATION: Dizziness and chest pain. COMPARISON: None available. FINDINGS: BRAIN/INTRACRANIAL STRUCTURES: Unenhanced CT images of the brain demonstrate no evidence of acute abn ormality. Ventricles and sulci are within normal limits of size and shape for a patient of this age. There is no evidence of acute ischemic injury, hemorrhage, or mass. There are no abnormal extra-axial fluid collections. EXTRACRANIAL STRUCTURES: Unremarkable. IMPRESSION: No acute abnormality. All CT scans at this location are performed using dose reduction to ALARA by means of automated expos ure control. Signer Name: Mono Robbins MD Signed: 01/11/2021 2:43 PM Workstation Name: [id number]
--- NOTE | 2021-01-11 14:55 | Cat Scan Report ---
CTA CHEST WITH IV CONTRAST INDICATION: chest pain omni 350 100 ml. TECHNIQUE: Axial CT images were obtained through the chest after injection of 100 mL Omnipaque 350 IV contrast. 3 plane MIP reconstructions were produced. All CT scans at this location are performed using CT dose reduction for ALARA by means of automated exposure control. COMPARISON: Prior CTA on 04/12/2015 FINDINGS: Pulmonary Arteries: No pulmonary emboli. Lungs: There is a 7 mm nodule in the medial right lower lobe. Trachea and Bronchi: No significant abnormality. Heart and Pericardium: No significant abnormality. Vasculature: No significant abnormality. Lymphatics: No lymphadenopathy. Additional Findings: None. Upper Abdomen: No acute findings. Skeletal Structures: No acute findings or aggressive bone lesions. IMPRESSION: 1. No CT evidence for pulmonary embolism. 2. No acute findings. 3. 7 mm pulmonary nodule in the right lower lobe is stable dating back to 2015 consistent with a richard gn etiology. Signer Name: German Vasques MD Signed: 01/11/2021 2:50 PM Workstation Name: [id number]
--- NOTE | 2021-01-12 10:44 | Electrocardiograph Report ---
[facility] Test Date: 2021-01-11 Test Time: 12:24:45 Pat Name: MARIN BARTLETT Department: Room: Gender: F Hanger Off: DEONDRE : 1960 Requested By: KARMA HAILE Order Number: [id number] Reading MD: Keshawn Jain Measurements Intervals [place] Rate: 64 P: 61 KS: 148 QRS: 29 QRSD: 85 T: 31 QT: 420 QTc: 435 Interpretive Statements Sinus rhythm Probable left atrial enlargement Nonspecific T abnormalities, anterior leads No previous ECG available for comparison Electronically Signed On 01-12-2021 10:43:27 EST by Keshawn Jain
== END 2021-01-11 15:24 | disposition home or self-care (01) ==
LOC: ED 08:41
DX: M25.512 Pain in left shoulder (principal); R07.89 Other chest pain; R42 Dizziness and giddiness; K21.9 Gastro-esophageal reflux disease without esophagitis; E11.9 Type 2 diabetes mellitus without complications; E78.00 Pure hypercholesterolemia, unspecified; G43.909 Migraine, unspecified, not intractable, without status migrainosus; Z86.73 Personal history of transient ischemic attack (TIA), and cerebral infarction without residual deficits; Z86.718 Personal history of other venous thrombosis and embolism; Z79.899 Other long term (current) drug therapy
CPT/HCPCS: 36415; 70450; 71046; 71275; 80053; 82962; 84484; 85025; 85379; 93005; 99284; Q9967